=== PATIENT | male | born 1945 | race Caucasian/White ===

== ENCOUNTER 2016-12-24 20:42 | Emergency (ER) | payer OTHER, MEDICARE ==
[2016-12-24 20:57] VITALS: BP 135/75; PULSE 66; RESP 18; TEMP 98.2; O2SAT 93
--- NOTE | 2016-12-24 22:42 | UCPHY ---
H & P Time Seen by Provider: 12/24/16 20:51 Patient Type: Established Smoking Status: Former smoker Constitutional: Initial Vital Signs Temperature (C) 36.8 C 12/24/16 20:56 Heart Rate 66 12/24/16 20:56 Respiratory Rate 18 12/24/16 20:56 Blood Pressure 135/75 H 12/24/16 20:56 O2 Sat (%) 93 12/24/16 20:56 O2 Delivery Mode Room Air Allergies/Adverse Reactions: Sulfa (Sulfonamide Antibiotics) Allergy (Verified 12/24/16 20:57) Departure - Departure Disposition: Home, Routine, Self-Care Clinical Impression: Hand contusion, Wrist sprain Condition: Good Instructions: Contusion in Adults (ED), Wrist Sprain (ED) Referrals: Stephanie Thurman MD [Primary Care Provider] - As per Instructions - PQRS PQRS Measurement: 134: Depression screening and followup, PRIME MD-PHQ2 (12 years and older) Over the last 2 weeks, how often have you been bothered by any of the following problems? 1. Feeling down, depressed, or hopeless? 2. Little interest or pleasure in doing things? Patient answered no to both 1 and 2 130: Documentation of medications. Reviewed all patient medications, doses, route and frequency. 226: Do you smoke? No. 47: 65 and older: Advanced care planning. Patient designates surrogate decision maker as spouse.. [Patient has advanced directive.] 51: 18 years old and older with diagnosis of COPD, spirometry performance. [Patient has no history of COPD 52: 18 years old and older with COPD and symptoms of COPD or FEV1<60% predicted prescribed a B Agonist. [Spirometry not performed; equipment not available.]
--- NOTE | 2016-12-24 22:48 | DX ---
Left Wrist, Four Views Indication: Trauma. Findings: There is significant osteoarthritis and osteopenia. There are joint derangements as a res ult of that process. I do not see any definite acute fractures. The soft tissues are also radiograp hically normal. Impression: No definite acute fracture. Osteopenia and osteoarthritis.
== END 2016-12-24 22:59 | disposition home or self-care (01) ==
LOC: CED 20:42
DX: S60.222A Contusion of left hand, initial encounter (principal); S63.502A Unspecified sprain of left wrist, initial encounter; Z88.2 Allergy status to sulfonamides; Z87.891 Personal history of nicotine dependence
CPT/HCPCS: 73110; G0463; L3908

== ENCOUNTER → 2017-03-01 | Outpatient (CLI) | payer OTHER, MEDICARE | LOC: CIMAGING 14:50 | PROVIDERS: ATTEND Internal Medicine | DX: R63.4 Abnormal weight loss (principal) | CPT/HCPCS: 71020-PO ==